=== PATIENT | female | born 2000 | race Two or more races ===

== ENCOUNTER 2021-03-16 22:27 | Emergency (ER) | payer SELFPAY ==
[~2021-03-16] VITALS: Ht 165.1 cm; Wt 60.0 kg
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
--- NOTE | 2021-03-16 22:57 | NUR ---
FAMILY AT BEDSIDE.
[2021-03-16] MEDS ORDERED: ACETAMINOPHEN 500 MG TABLET PO ONE (23:00)
[2021-03-16] MEDS ORDERED: ACETAMINOPHEN 500 MG TABLET ONE (23:06)
--- NOTE | 2021-03-16 23:41 | NUR ---
PT BACK FROM CT. VS STABLE. NO ACUTE DISTRESS NOTED. FAMILY AT BEDSIDE. CALL LIGHT IN PLACE. WILL CONTINUE TO MONITOR.
--- NOTE | 2021-03-17 00:17 | NUR ---
PT RESTING IN ROOM. VS STABLE NO ACUTE DISTRESS NOTED. FAMILY AT BEDSIDE. WILL CONTINUE TO MONITOR.
[2021-03-17 00:33] VITALS: BP 105/51
--- NOTE | 2021-03-17 00:55 | NUR ---
PT IS ABLE TO SAFELY AMBULATE AROUND ROOM/[facility]. PT HAS A RIDE HOME WITH HER MOTHER.
== END 2021-03-17 01:28 | disposition home or self-care (01) ==
LOC: ED 03-17
DX: S06.0X0A Concussion without loss of consciousness, initial encounter (principal); M54.2 Cervicalgia; W01.0XXA Fall on same level from slipping, tripping and stumbling without subsequent striking against object, initial encounter; Y93.89 Activity, other specified; Y92.322 Soccer field as the place of occurrence of the external cause; Y99.8 Other external cause status
CPT/HCPCS: 70450; 72125; 99285